=== PATIENT | female | born 1995 | race Two or more races ===

== ENCOUNTER 2023-05-09 11:57 | Emergency (ER) | payer OTHER ==
[~2023-05-09] VITALS: Ht 162.6 cm; Wt 57.6 kg
[2023-05-09] MEDS ORDERED: CLINDAMYCIN PHOSPHATE 150 MG/ML (300mg) IV ONE (13:30)
[2023-05-09] MEDS ORDERED: KETOROLAC TROMETHAMINE 30 MG VIAL IV ONE (14:30)
== END 2023-05-09 15:43 | disposition home or self-care (01) ==
LOC: ER 11:57
DX: L73.2 Hidradenitis suppurativa (principal)

== ENCOUNTER 2023-05-09 16:35 | Outpatient (CLI) | payer OTHER | END 2023-05-09 16:40 | disposition home or self-care (01) | LOC: LAB 16:35 | PROVIDERS: ATTEND Specialist | DX: L02.91 Cutaneous abscess, unspecified (principal) ==